=== PATIENT | female | born 1950 | race African-American/Black ===

== ENCOUNTER 2017-07-25 10:21 | Outpatient (CLI) | payer MEDICARE, OTHER ==
--- NOTE | 2017-07-25 12:16 | ULT ---
LEFT LOWER EXTREMITY VENOUS DOPPLER: 07/25/2017 PROVIDED CLINICAL HISTORY: Left leg pain. FINDINGS: Estevez-scale and color Doppler sonography with spectral analysis was performed of the left common femor al, femoral, popliteal, posterior tibial, greater saphenous, and profunda femoral veins, demonstratin g a normal sonographic appearance to each. IMPRESSION: No evidence for left lower extremity deep venous thrombosis. POS: NICKIE
== END 2017-07-25 10:22 | disposition home or self-care (01) ==
LOC: ULT 10:21
PROVIDERS: ATTEND Family Medicine
DX: M79.662 Pain in left lower leg (principal)

== ENCOUNTER 2017-11-12 07:46 | Outpatient (CLI) | payer MEDICARE, OTHER | END 2017-11-12 07:47 | disposition home or self-care (01) | LOC: BICMRI 07:46 | PROVIDERS: ATTEND Family Medicine | DX: M47.896 Other spondylosis, lumbar region (principal); M79.662 Pain in left lower leg; G89.29 Other chronic pain; R93.7 Abnormal findings on diagnostic imaging of other parts of musculoskeletal system | CPT/HCPCS: 72148 ==

== ENCOUNTER 2018-02-05 12:42 | Outpatient (CLI) | payer MEDICARE, OTHER | END 2018-02-05 12:43 | disposition home or self-care (01) | LOC: BICMAMMO 12:42 | PROVIDERS: ATTEND Family Medicine | DX: Z12.31 Encounter for screening mammogram for malignant neoplasm of breast (principal); Z80.3 Family history of malignant neoplasm of breast | CPT/HCPCS: 77063; 77067 ==

== ENCOUNTER 2018-02-23 12:06 | Outpatient (CLI) | payer MEDICARE, OTHER | END 2018-02-23 12:07 | disposition home or self-care (01) | LOC: BICRAD 12:06 | PROVIDERS: ATTEND Physical Medicine & Rehabilitation | DX: M25.551 Pain in right hip (principal); M16.0 Bilateral primary osteoarthritis of hip; M47.896 Other spondylosis, lumbar region | CPT/HCPCS: 72170 ==

== ENCOUNTER 2018-04-30 12:05 | Outpatient (CLI) | payer MEDICARE, OTHER ==
--- NOTE | 2018-04-30 14:09 | RAD ---
RADIOGRAPH LEFT SHOULDER THREE VIEWS: Date: 04-30-18 History: 67-year-old female with acute left shoulder pain. FINDINGS: No fracture of dislocation. Mild to moderate degenerative changes at the inferior aspect of the gleno humeral joint. Mild DJD at AC joint. No definite calcification of rotator cuff identified. IMPRESSION: 1. No fracture. 2. Mild to moderate osteoarthrosis of the glenohumeral joint. POS: CET
--- NOTE | 2018-04-30 14:10 | RAD ---
RADIOGRAPH LEFT HIP 2 VIEWS: HISTORY: A 67-year-old female with left hip pain. FINDINGS: Moderate subcapital osteophytes. Moderate acetabular osteophytosis. No high-grade joint space narro wing. No femoral head collapse. Vacuum joint phenomenon and sclerosis of left SI joint. No fractur e or dislocation. No major interval change compared to a pelvis radiograph of 02/23/2018. IMPRESSION: 1. Moderate osteoarthrosis of the left hip. 2. 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 POS: CET
--- NOTE | 2018-04-30 14:11 | RAD ---
RADIOGRAPH LEFT KNEE 4 VIEWS: DATE: 04/30/2018. HISTORY: A 67-year-old female with left knee pain. FINDINGS: Resurfacing changes of the articular surfaces of the patella, distal femur, and tibial plateau. [place] llic prostheses cover the articular surfaces of the distal femur and tibial plateau. No significant joint effusion. No fracture, dislocation, or hardware loosening. IMPRESSION: Status post total left replacement arthroplasty, without evidence of complications. POS: CET
--- NOTE | 2018-04-30 14:13 | RAD ---
RADIOGRAPH LEFT WRIST THREE VIEWS: Date: 04-30-18 History: 67-year-old female with left wrist pain. FINDINGS: No fracture is identified. However, if there is snuff box tenderness that suggests an occult scaphoid fracture following trauma, then the general recommendation is immobilization and follow up imaging i n 5-10 days. Degenerative changes at the STT complex and first CMC are minimal. Otherwise the rest of the joint spaces are maintained without erosions or osteophytes. The exception of this is poor visua lization of the third and fourth CMC joint spaces. Alignment is normal. IMPRESSION: Negative. POS: CET
== END 2018-04-30 12:06 | disposition home or self-care (01) ==
LOC: BICRAD 12:05
PROVIDERS: ATTEND Family Medicine
DX: M25.562 Pain in left knee (principal); M25.532 Pain in left wrist; M25.512 Pain in left shoulder; M25.552 Pain in left hip; Z96.652 Presence of left artificial knee joint; M16.12 Unilateral primary osteoarthritis, left hip; M19.012 Primary osteoarthritis, left shoulder; M19.91 Primary osteoarthritis, unspecified site

== ENCOUNTER 2018-07-14 12:15 | Outpatient (CLI) | payer MEDICARE ==
[2018-07-14 13:07] LABS: Hemoglobin 13.9 g/dL (12.0-16.0); Mean Corpuscular HGB CONC 33.5 g/dL (32.0-36.0); Mean Corpuscular Hemoglobin 30.9 pg (27.0-31.0); Mean Corpuscular Volume 92.1 fL (78.0-98.0); Mean Platelet Volume 7.7 fL (7.4-10.4); Platelet Count 313 thou/uL (130-400); RBC Distribution Width 12.4 % (11.5-14.5); Red Blood Cell (RBC) Count 4.49 mill/uL (4.20-5.40); White Blood Cell (WBC) Count 7.4 thou/uL (4.8-10.8)
[2018-07-14 13:13] LABS: PTT 32.4 SEC (22.9-36.1); Prothrombin Time 12.9 SEC (12.0-14.7)
== END 2018-07-14 12:16 | disposition home or self-care (01) ==
LOC: LABBT 12:15
PROVIDERS: ATTEND Urology
DX: Z01.818 Encounter for other preprocedural examination (principal)
CPT/HCPCS: 85027; 85610; 85730; 93005; 93010

== ENCOUNTER → 2018-07-17 | Day surgery (SDC) | payer MEDICARE ==
[2018-07-14 12:44] VITALS: BMI 39.3
[~2018-07-17] MED LIST: Fentanyl 100 MCG/2 ML VIAL ONE; Glycopyrrolate 0.2 MG/ML 5 ML SYRINGE ONE; Lidocaine 1% PF 5 ML VIAL ONE; Ondansetron PF 4 MG/2 ML Vial ONE; PROPOFOL 200 MG/20 ML VIAL ONE; Rocuronium Bromide 10 MG/ML (10ML VIAL) ONE; cefTRIAXone\\ROCEPHIN 1 GM VIAL ONE; diphenhydrAMINE 50 MG/ML VIAL ONE
--- NOTE | 2018-07-17 15:37 | OP ---
DATE OF PROCEDURE: 07/17/2018 PREOPERATIVE DIAGNOSES: History of interstitial cystitis and pelvic pain. POSTOPERATIVE DIAGNOSES: History of interstitial cystitis and pelvic pain. PROCEDURE PERFORMED: Cystoscopy with hydrodistention. ANESTHETIC: General. ESTIMATED BLOOD LOSS: Less than 50 mL. DRAINS: None. FINDINGS: 1. There is no evidence of urethral diverticulum or stenosis. 2. Ureteral orifices in normal position with clear efflux. There was no evidence of bladder tumor, foreign body, or stone. Hydrodistention volumes with 70 cm of water with 400 ml and 450 ml. Post distention cystoscopy showed no evidence of bladder injury. She did have glomerulations interposed and terminal hematuria on drainage on cysto after hydrodistention. DESCRIPTION OF PROCEDURE: After obtaining written and verbal consent from the patient after receiving some Benadryl and 1 g of Rocephin, she was taken to the operating suite. She was placed in the supine position on the treatment table. PlexiPulses were placed on her lower extremities and turned on. She was given a general anesthetic and an oral intubation. She was placed in the dorsal lithotomy position and she was sterilely prepped and draped for cystoscopy. This was done with a 22-Brazilian sheath. This was well lubricated and passed under direct vision through the female urethra into the bladder with the aid of a 30 degree lens and video camera and monitor. The bladder was filled and emptied number times as this was examined with the 30 and 70 degree lenses. The instruments were removed and an 18-Brazilian Mariscal catheter was placed with 15 mL in the balloon. The irrigation bag was brought down, so it was 70 cm above her pubic symphysis. It was hooked up to the Mariscal catheter and the irrigation fluid was running until it became just a very slow speed. At this point, we timed it for 5 minutes leaving it open so it continued to slowly fill over that time. We then drained it and there was 400 mL volume with some blood at the end of the drainage. Then we repeated this for two additional times with a volume of 400 and last with a volume of 450. At this point, the balloon on the catheter was deflated. The catheter was removed and cystoscopy was again performed with the 30 and 70 degree lenses with the above findings. The bladder was drained. The instruments were removed. A Mariscal catheter was not left indwelling. She was awakened. She was extubated. She was taken by stretcher to the recovery room. Job ID: [id number]
== END ==
LOC: SDC 06:38
PROVIDERS: ATTEND Urology
PROC: 0T7B8ZZ Dilation of Bladder, Via Natural or Artificial Opening Endoscopic (ICD-10-PCS; principal; 2018-07-17)
DX: R10.2 Pelvic and perineal pain (principal); E89.0 Postprocedural hypothyroidism; K21.9 Gastro-esophageal reflux disease without esophagitis; Z87.440 Personal history of urinary (tract) infections; Z79.82 Long term (current) use of aspirin; Z79.899 Other long term (current) drug therapy; Z88.0 Allergy status to penicillin; Z88.1 Allergy status to other antibiotic agents; Z88.2 Allergy status to sulfonamides; Z88.5 Allergy status to narcotic agent; Z88.8 Allergy status to other drugs, medicaments and biological substances
CPT/HCPCS: J0696; J1200; J2001; J2405; J2704; J3010

== ENCOUNTER 2018-08-06 08:59 | Outpatient (CLI) | payer MEDICARE, OTHER ==
--- NOTE | 2018-08-06 13:31 | RAD ---
BARIUM ENEMA SINGLE COLUMN: History: Screening. Incomplete colonoscopy. FINDINGS: Single column contrast evaluation of the colon shows numerous diverticula along the course of the col on. No evidence of inflammation. No annular constricting lesion or persistent filling defect. Appendi x and terminal ileum were refluxed. Circumferential narrowing of the right colon at the level of the ileocecal valve is present without a n annular constricting lesion. There are also diverticula at this level. The appearance is similar to the CT from 11-23-13. IMPRESSION: Diverticulosis. No evidence of diverticulitis. No significant abnormalities otherwise demonstrated. POS: PAVAN
== END 2018-08-06 09:00 | disposition home or self-care (01) ==
LOC: RAD 08:59
PROVIDERS: ATTEND Internal Medicine Gastroenterology
DX: Q43.8 Other specified congenital malformations of intestine (principal); K57.30 Diverticulosis of large intestine without perforation or abscess without bleeding; Z80.0 Family history of malignant neoplasm of digestive organs
CPT/HCPCS: 74280

== ENCOUNTER 2019-03-29 10:47 | Outpatient (CLI) | payer MEDICARE, OTHER ==
--- NOTE | 2019-03-29 14:13 | MMO ---
Bilateral MAMMO Bilat Screen [facility]DI+[facility]. CLINICAL HISTORY: Patient is 68 years old and is seen for screening. The patient has the following family history of breast cancer: niece, at age 35. The patient has no personal history of cancer. VIEWS: The views performed were: bilateral craniocaudal with tomosynthesis and bilateral mediolateral oblique with tomosynthesis. FILMS COMPARED: The present examination has been compared to prior imaging studies performed at [facility] on 11/15/2016 and 02/05/2018, and at [facility] on 02/05/2016 and 05/09/2016. This study has been interpreted with the assistance of computer-aided detection. MAMMOGRAM FINDINGS: The breasts are almost entirely fat. Finding 1: There are benign appearing calcifications seen in both breasts. Finding 2: There is a stable area of architectural distortion seen in the axillary tail of the left breast. There are no suspicious masses, suspicious calcifications, or new areas of architectural distortion. IMPRESSION: THERE IS NO MAMMOGRAPHIC EVIDENCE OF MALIGNANCY. A ROUTINE FOLLOW-UP MAMMOGRAM IN 1 YEAR IS RECOMMENDED. THE RESULTS OF THIS EXAM WERE SENT TO THE PATIENT. ACR BI-RADS Category 2 - Benign finding MAMMOGRAPHY NOTE: 1. A negative mammogram report should not delay a biopsy if a dominant of clinically suspicious mass is present. 2. Approximately 10% to 15% of breast cancers are not detected by mammography. 3. Adenosis and dense breasts may obscure an underlying neoplasm. Reported by: ISRA BARNETT MD Electonically Signed: [id number]
== END 2019-03-29 10:48 | disposition home or self-care (01) ==
LOC: BICMAMMO 10:47
PROVIDERS: ATTEND Family Medicine
DX: Z12.31 Encounter for screening mammogram for malignant neoplasm of breast (principal); Z80.3 Family history of malignant neoplasm of breast
CPT/HCPCS: 77063; 77067

== ENCOUNTER 2019-08-12 13:24 | Outpatient (CLI) | payer MEDICARE, OTHER ==
--- NOTE | 2019-08-12 14:32 | RAD ---
Right hip 2 views: 08/12/2019 COMPARISON: None HISTORY: Right hip pain FINDINGS: Moderate degenerative change of the lower lumbar spine, right sacroiliac joint, and pubic s ymphysis. There is moderate degenerative change involving the right hip with superior joint space narrowing as well as lateral femoral head and acetabular osteophyte formation. There is inferior/medi al femoral head osteophyte formation as well. No acute fracture or dislocation. IMPRESSION: Degenerative joint disease as described above.
--- NOTE | 2019-08-12 14:43 | RAD ---
LEFT KNEE FOUR VIEWS: 08/12/19 HISTORY: Posterior left knee pain. FINDINGS: Comparison is made with the exam of 04/30/18. Postop changes of total knee arthroplasty are again seen in good position and alignment. No fracture, dislocation or bony destruction is seen. No perihardware lucency is identified to suggest loosening. IMPRESSION: No acute process. POS: OFF
== END 2019-08-12 13:25 | disposition home or self-care (01) ==
LOC: BICRAD 13:24
PROVIDERS: ATTEND Family Medicine
DX: M25.562 Pain in left knee (principal); M25.551 Pain in right hip; L98.9 Disorder of the skin and subcutaneous tissue, unspecified; M16.11 Unilateral primary osteoarthritis, right hip

== ENCOUNTER 2020-04-11 09:54 | Outpatient (CLI) | payer MEDICARE, OTHER ==
--- NOTE | 2020-04-11 11:03 | BD ---
EXAM: Bone densitometry using DEXA HISTORY: 69 yo female. Screening for postmenopausal osteoporosis FINDINGS: L1--bone mineral density 0.978 g/sq cm; T score -0.1 ; Z score 1.2 L2--bone mineral density 0.997 g/sq cm; T score -0.3 ; Z score 1.2 L3--bone mineral density 1.057 g/sq cm; T score -0.2 ; Z score 1. L4--bone mineral density 1.026 g/sq cm; T score -0.3 ; Z score 1. Total L1-L4--bone mineral density 1.017 g/sq cm; T score -0.3 ; Z score 1. Left femoral neck--bone mineral density0.939; T score 0.8 ; Z score 1.4 Total proximal left femur--bone mineral density 1.138; T score 1.6 ; Z score 1.9 There has been an interval reduction of 1.3% in the BMD of the lumbar spine and a reduction of 1.4% in the BMD of the proximal femur since the previous study of 02/10/2017. IMPRESSION: Normal BMD
--- NOTE | 2020-04-11 11:50 | MMO ---
Bilateral MAMMO Bilat Screen [facility]DI+[facility]EREE. CLINICAL HISTORY: Patient is 69 years old and is seen for screening. The patient has the following family history of breast cancer: niece, at age 35. The patient has no personal history of cancer. VIEWS: The views performed were: . FILMS COMPARED: The present examination has been compared to prior imaging studies performed at [facility] on 11/15/2016, 02/05/2018 and 03/29/2019, and at [facility] on 05/09/2016. This study has been interpreted with the assistance of computer-aided detection. MAMMOGRAM FINDINGS: The breasts are almost entirely fat. There are no suspicious masses, suspicious calcifications, or new areas of architectural distortion. IMPRESSION: THERE IS NO MAMMOGRAPHIC EVIDENCE OF MALIGNANCY. A ROUTINE FOLLOW-UP MAMMOGRAM IN 1 YEAR IS RECOMMENDED. THE RESULTS OF THIS EXAM WERE SENT TO THE PATIENT. ACR BI-RADS Category 1 - Negative MAMMOGRAPHY NOTE: 1. A negative mammogram report should not delay a biopsy if a dominant of clinically suspicious mass is present. 2. Approximately 10% to 15% of breast cancers are not detected by mammography. 3. Adenosis and dense breasts may obscure an underlying neoplasm. Reported by: Jil DEMPSEY Electonically Signed: [id number]
== END 2020-04-11 09:55 | disposition home or self-care (01) ==
LOC: BICMAMMO 09:54
PROVIDERS: ATTEND Student in an Organized Health Care Education/Training Program
DX: Z12.31 Encounter for screening mammogram for malignant neoplasm of breast (principal); Z13.820 Encounter for screening for osteoporosis; Z78.0 Asymptomatic menopausal state
CPT/HCPCS: 77063; 77067; 77080

== ENCOUNTER 2020-05-16 12:18 | Outpatient (CLI) | payer MEDICARE, OTHER ==
--- NOTE | 2020-05-16 13:33 | ULT ---
EXAM: Limited soft tissue ultrasound PROVIDED CLINICAL HISTORY: Left axillary palpable abnormality with pain radiating to upper chest COMPARISON: None FINDINGS: Limited sonographic interrogation was performed of the left chest wall and axilla in the region of pa lpable concern and pain. The sonographic appearance of the breast tissue in this region is normal. IMPRESSION: No sonographic abnormality is evident in the region of clinical concern. Negative imaging findings sh ould not preclude further evaluation of a clinically suspicious finding. Patient is referred back to her clinician.
--- NOTE | 2020-05-16 13:33 | MMO ---
Left Breast MAMMO Unilat Diag DDI LT+SHEREE. CLINICAL HISTORY: Patient is 69 years old and is seen for diagnostic exam,palpable abnormality and pain in the left breast. The patient has the following family history of breast cancer: niece, at age 35. The patient has no personal history of cancer. VIEWS: The views performed were: left craniocaudal with tomosynthesis; left mediolateral oblique with tomosynthesis; left mediolateral; and left mediolateral with tomosynthesis. FILMS COMPARED: The present examination has been compared to prior imaging studies performed at [facility] on 02/05/2018, 03/29/2019, 04/11/2020 and 05/16/2020. This study has been interpreted with the assistance of computer-aided detection. MAMMOGRAM FINDINGS: The breast is almost entirely fat. Finding 1: There are stable post operative changes seen in the upper region of the left breast. Finding 2: There are no mammographic or sonographic abnormalities in the area of palpable concern. The patient is referred back to her clinician. Negative imaging findings should not preclude biopsy if clinical findings are suspicious. There are no suspicious masses, suspicious calcifications, or new areas of architectural distortion. IMPRESSION: FINDING 2: THERE ARE NO MAMMOGRAPHIC ABNORMALITIES IN THE AREA OF PALPABLE CONCERN. THE PATIENT IS REFERRED BACK TO HER CLINICIAN. NEGATIVE IMAGING FINDINGS SHOULD NOT PRECLUDE BIOPSY IF CLINICAL FINDINGS ARE SUSPICIOUS. THE RESULTS OF THIS EXAM WERE SENT TO THE PATIENT. ACR BI-RADS Category 2 - Benign finding MAMMOGRAPHY NOTE: 1. A negative mammogram report should not delay a biopsy if a dominant of clinically suspicious mass is present. 2. Approximately 10% to 15% of breast cancers are not detected by mammography. 3. Adenosis and dense breasts may obscure an underlying neoplasm. Reported by: DIONISIO PAYAN MD Electonically Signed: [id number]
== END 2020-05-16 12:19 | disposition home or self-care (01) ==
LOC: BICULT 12:18
PROVIDERS: ATTEND Student in an Organized Health Care Education/Training Program
DX: N63.20 Unspecified lump in the left breast, unspecified quadrant (principal); R07.89 Other chest pain
CPT/HCPCS: 76999; 77065; G0279

== ENCOUNTER 2020-10-27 09:03 | Outpatient (CLI) | payer MEDICARE | END 2020-10-27 09:04 | disposition home or self-care (01) | LOC: BICULT 09:03 | PROVIDERS: ATTEND Student in an Organized Health Care Education/Training Program | DX: R10.11 Right upper quadrant pain (principal); N28.1 Cyst of kidney, acquired; K83.8 Other specified diseases of biliary tract; Z90.49 Acquired absence of other specified parts of digestive tract | CPT/HCPCS: 93975 ==

== ENCOUNTER 2021-07-17 13:03 | Outpatient (CLI) | payer MEDICARE, OTHER | END 2021-07-17 13:04 | disposition home or self-care (01) | LOC: BICULT 13:03 | PROVIDERS: ATTEND Internal Medicine Endocrinology, Diabetes & Metabolism | DX: G95.89 Other specified diseases of spinal cord (principal) | CPT/HCPCS: 76999 ==

== ENCOUNTER 2021-10-10 06:58 | Outpatient (CLI) | payer MEDICARE, OTHER ==
[2021-10-10 08:25] LABS: Estimated GFR-MDRD - POC Greater than 90
== END 2021-10-10 06:59 | disposition home or self-care (01) ==
LOC: CT 06:58
PROVIDERS: ATTEND Student in an Organized Health Care Education/Training Program
DX: R10.9 Unspecified abdominal pain (principal); K44.9 Diaphragmatic hernia without obstruction or gangrene; I70.0 Atherosclerosis of aorta; M16.0 Bilateral primary osteoarthritis of hip; M48.8X6 Other specified spondylopathies, lumbar region
CPT/HCPCS: 74177; 82565

== ENCOUNTER 2022-07-08 05:42 | Day surgery (SDC) | payer MEDICARE, OTHER ==
[2022-07-05 12:21] VITALS: BMI 38.4
[2022-07-08] MEDS ORDERED: Famotidine/PF 20 mg/2ml Vial ONE (06:51)
[2022-07-08] MEDS ORDERED: Fentanyl 100 MCG/2 ML VIAL ONE (06:51)
[2022-07-08] MEDS ORDERED: Iopamidol 30 ML ONE (06:56)
[2022-07-08] MEDS ORDERED: Heparin 5,000 UNITS/ML VIAL ONE (06:56)
[2022-07-08] MEDS ORDERED: Hydrocortisone Sod Succ/PF 100 mg/2 ml Vial ONE (06:56)
[2022-07-08] MEDS ORDERED: Sodium Bicarb 50 MEQ/50 ML VIAL ONE (07:07)
[2022-07-08] MEDS ORDERED: Lidocaine Jelly 2% Urojet 10 ML ONE (07:09)
[2022-07-08] MEDS ORDERED: Sodium Chloride 0.9% 100 ML ONE (07:27)
[2022-07-08] MEDS ORDERED: cefTRIAXone\\ROCEPHIN 1 GM VIAL ONE (07:27)
[2022-07-08] MEDS ORDERED: Metoclopramide HCl 10 MG/2 ML VIAL ONE (07:38)
[2022-07-08] MEDS ORDERED: Ondansetron PF 4 MG/2 ML Vial ONE (07:38)
[2022-07-08] MEDS ORDERED: Lidocaine 1% PF 5 ML VIAL ONE (07:38)
[2022-07-08] MEDS ORDERED: PROPOFOL 200 MG/20 ML VIAL ONE (07:38)
== END 2022-07-08 09:56 | disposition home or self-care (01) ==
LOC: SDC 05:42
PROVIDERS: ATTEND Urology
PROC: 0T7B8ZZ Dilation of Bladder, Via Natural or Artificial Opening Endoscopic (ICD-10-PCS; principal; 2022-07-08)
DX: N30.10 Interstitial cystitis (chronic) without hematuria (principal); I10 Essential (primary) hypertension; E89.0 Postprocedural hypothyroidism; K21.9 Gastro-esophageal reflux disease without esophagitis; Z79.82 Long term (current) use of aspirin; Z79.890 Hormone replacement therapy; Z79.899 Other long term (current) drug therapy; Z88.0 Allergy status to penicillin; Z88.1 Allergy status to other antibiotic agents; Z88.2 Allergy status to sulfonamides; Z88.5 Allergy status to narcotic agent; Z88.8 Allergy status to other drugs, medicaments and biological substances; Z91.048 Other nonmedicinal substance allergy status
CPT/HCPCS: J0696; J1644; J1720; J2001; J2405; J2704; J2765; J3010; J3490; Q9967; S0028

== ENCOUNTER 2023-05-15 09:31 | Outpatient (CLI) | payer MEDICARE, OTHER | END 2023-05-15 09:32 | disposition home or self-care (01) | LOC: BICMAMMO 09:31 | PROVIDERS: ATTEND Family Medicine | DX: Z12.31 Encounter for screening mammogram for malignant neoplasm of breast (principal); Z80.3 Family history of malignant neoplasm of breast; Z91.89 Other specified personal risk factors, not elsewhere classified | CPT/HCPCS: 77063; 77067 ==

== ENCOUNTER 2023-05-30 10:26 | Outpatient (CLI) | payer MEDICARE, OTHER ==
[2023-05-30] MEDS ORDERED: Iopamidol 370 76% 100 ML VIAL ONE (13:40)
== END 2023-05-30 10:27 | disposition home or self-care (01) ==
LOC: CT 10:26
PROVIDERS: ATTEND Family Medicine
DX: I72.2 Aneurysm of renal artery (principal); N28.1 Cyst of kidney, acquired; K44.9 Diaphragmatic hernia without obstruction or gangrene; K57.30 Diverticulosis of large intestine without perforation or abscess without bleeding; Z90.710 Acquired absence of both cervix and uterus
CPT/HCPCS: 74174; 76380; 82565; Q9967

== ENCOUNTER 2023-12-29 09:05 | Outpatient (CLI) | payer MEDICARE, OTHER | END 2023-12-29 09:06 | disposition home or self-care (01) | LOC: BICMRI 09:05 | PROVIDERS: ATTEND Orthopaedic Surgery | DX: M25.511 Pain in right shoulder (principal); M75.111 Incomplete rotator cuff tear or rupture of right shoulder, not specified as traumatic ==

== ENCOUNTER 2024-01-20 11:45 | Outpatient (CLI) | payer MEDICARE, OTHER | END 2024-01-20 11:46 | disposition home or self-care (01) | LOC: BICRAD 11:45 | PROVIDERS: ATTEND Family Medicine | DX: M54.6 Pain in thoracic spine (principal); J84.10 Pulmonary fibrosis, unspecified; M47.814 Spondylosis without myelopathy or radiculopathy, thoracic region | CPT/HCPCS: 71046; 72072 ==

== ENCOUNTER 2024-05-19 11:51 | Outpatient (CLI) | payer MEDICARE, OTHER | END 2024-05-19 11:52 | disposition home or self-care (01) | LOC: BICMAMMO 11:51 | PROVIDERS: ATTEND Family Medicine | DX: Z12.31 Encounter for screening mammogram for malignant neoplasm of breast (principal); Z80.3 Family history of malignant neoplasm of breast; Z91.89 Other specified personal risk factors, not elsewhere classified | CPT/HCPCS: 77063; 77067 ==

== ENCOUNTER 2025-02-03 10:47 | Outpatient (CLI) | payer MEDICARE, OTHER | END 2025-02-03 10:48 | disposition home or self-care (01) | LOC: BICMAMMO 10:47 | PROVIDERS: ATTEND Family Medicine | DX: N95.9 Unspecified menopausal and perimenopausal disorder (principal) | CPT/HCPCS: 77080 ==

== ENCOUNTER 2025-06-17 09:23 | Outpatient (CLI) | payer MEDICARE, OTHER | END 2025-06-17 09:24 | disposition home or self-care (01) | LOC: BICMAMMO 09:23 | PROVIDERS: ATTEND Family Medicine | DX: Z12.31 Encounter for screening mammogram for malignant neoplasm of breast (principal); Z80.3 Family history of malignant neoplasm of breast; Z91.89 Other specified personal risk factors, not elsewhere classified | CPT/HCPCS: 77063; 77067 ==